=== PATIENT | male | born 1945 | race Caucasian/White ===

== ENCOUNTER → 2016-07-24 | Outpatient (CLI) | payer MEDICARE, BC ==
[2016-07-24 16:32] LABS: ABSOLUTE EOSINOPHILS # (AUTO) 0.1 10^3/uL (0.0-0.6); ABSOLUTE LYMPHOCYTES (AUTO) 1.6 10^3/uL (0.5-4.7); ABSOLUTE MONOCYTES (AUTO) 0.6 10^3/uL (0.1-1.4); ABSOLUTE NEUT (AUTO) 3.5 10^3/uL (1.7-8.2); BASOPHILS % (AUTO) 0.4 % (0-2); EOSINOPHILS % (AUTO) 2.5 % (0-6); HEMATOCRIT 43.2 % (37.9-51.0); HEMOGLOBIN 14.5 g/dL (13.5-17.0); HGB HCT DIFFERENCE 0.3; LYMPHOCYTES % (AUTO) 26.9 % (13-45); MEAN CORPUSCULAR HGB CONC 33.7 g/dL (32.0-36.0); MEAN CORPUSCULAR VOLUME 92 fl (80-97); MONOCYTES % (AUTO) 10.2 % (3-13); RED CELL DISTRIBUTION WIDTH 14.8 % (11.5-14.0); WHITE BLOOD COUNT 5.8 10^3/uL (4.0-10.5)
[2016-07-24 16:39] LABS: ALANINE AMINOTRANSFERASE 33 U/L (21-72); ALBUMIN 4.1 g/dL (3.5-5.0); ALKALINE PHOSPHATASE 62 U/L (38-126); ANION GAP 13 (5-19); ASPARTATE AMINO TRANSFERASE 31 U/L (17-59); BILIRUBIN,TOTAL 0.8 mg/dL (0.2-1.3); BLOOD UREA NITROGEN 25 mg/dL (7-20); CALCIUM 9.4 mg/dL (8.4-10.2); CARBON DIOXIDE 26 mmol/L (22-30); CHLORIDE 103 mmol/L (98-107); CREATININE RESULT 1.36 mg/dL (0.52-1.25); GLUCOSE 87 mg/dL (75-110); POTASSIUM 4.1 mmol/L (3.6-5.0); SODIUM 141.6 mmol/L (137-145); TOTAL PROTEIN 7.4 g/dL (6.3-8.2)
--- NOTE | 2016-07-25 09:22 | EKG REPORT ---
SEVERITY:- ABNORMAL ECG - SINUS RHYTHM ATRIAL PREMATURE COMPLEX FIRST DEGREE AV BLOCK INCOMPLETE RBBB AND LAFB PROBABLE LEFT VENTRICULAR HYPERTROPHY : Confirmed by: Geronimo Jones 25-Jul-2016 09:21:34
== END ==
LOC: OD 15:34
PROVIDERS: ATTEND Physician Assistant
DX: Z01.810 Encounter for preprocedural cardiovascular examination (principal); Z01.811 Encounter for preprocedural respiratory examination; Z01.812 Encounter for preprocedural laboratory examination
CPT/HCPCS: 36415; 80053; 85025; 87070; 93005; 93010

== ENCOUNTER 2016-10-15 07:14 | Emergency (ER) | payer MEDICARE, BC ==
[2016-10-15] MEDS ORDERED: ASPIRIN 81 MG TABLET, CHEWABLE PO ONE (07:43)
[2016-10-15 07:56] LABS: ABSOLUTE EOSINOPHILS # (AUTO) 0.1 10^3/uL (0.0-0.6); ABSOLUTE LYMPHOCYTES (AUTO) 1.3 10^3/uL (0.5-4.7); ABSOLUTE MONOCYTES (AUTO) 0.5 10^3/uL (0.1-1.4); ABSOLUTE NEUT (AUTO) 5.7 10^3/uL (1.7-8.2); BASOPHILS % (AUTO) 0.6 % (0-2); EOSINOPHILS % (AUTO) 1.3 % (0-6); HEMATOCRIT 42.5 % (37.9-51.0); HEMOGLOBIN 14.6 g/dL (13.5-17.0); HGB HCT DIFFERENCE 1.3; MEAN CORPUSCULAR HEMOGLOBIN 31.4 pg (27.0-33.4); MEAN CORPUSCULAR HGB CONC 34.5 g/dL (32.0-36.0); MEAN CORPUSCULAR VOLUME 91 fl (80-97); MONOCYTES % (AUTO) 5.9 % (3-13); RED BLOOD COUNT 4.67 10^6/uL (4.35-5.55); RED CELL DISTRIBUTION WIDTH 14.4 % (11.5-14.0); SEGMENTED NEUTROPHILS % (AUTO) 75.2 % (42-78); WHITE BLOOD COUNT 7.6 10^3/uL (4.0-10.5)
--- NOTE | 2016-10-15 07:56 | ER Document Report ---
ED General - General Chief Complaint: Chest Pain Stated Complaint: CHEST PAIN Mode of Arrival: Medic Information source: Patient Notes: Patient presents to the emergency department via EMS for complaints of left- sided chest pain that radiates down his left arm. Patient reports the pain woke him up. Patient reports he's felt nauseated and little bit clammy. Patient was given aspirin by EMS. Patient also received sublingual nitroglycerin twice and it did help relieve the chest pain but the pain came back. Patient reports the chest pain is 3/5 and the left arm pain is 4/5. Patient denies vomiting diarrhea fever. Patient reports he was doing a colonoscopy prep yesterday. Reports he has a history of CA. Reports history of bypass surgery done in 2011 at [facility]. Patient reports he is only taking baby aspirin daily. He reports SOB but also reports he has a history of feeling short of breath but they cannot find anything wrong. 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 He reports he was told everything was fine. TRAVEL OUTSIDE OF THE [place] IN LAST 30 DAYS: No - HPI Onset: This morning Onset/Duration: Sudden Quality of pain: Achy, Throbbing Severity: Severe Pain Level: 4 Associated symptoms: Chest pain, Nausea, Shortness of breath Exacerbated by: Denies Relieved by: Denies Similar symptoms previously: No Recently seen / treated by doctor: Yes - recent stress and echo - Related Data Allergies/Adverse Reactions: No Known Allergies Allergy (Verified 10/26/11 20:11) Past Medical History - General Information source: Patient - Social History Smoking Status: Former Smoker - quit 23 yo Cigarette use (# per day): No Frequency of alcohol use: None Drug Abuse: None 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 Lives with: Alone Family History: Reviewed & Not Pertinent - Past Medical History Cardiac Medical History: Reports: Hx Heart Attack GI Medical History: Reports: Hx Gastroesophageal Reflux Disease Past Surgical History: Reports: Hx Cardiac Surgery - quadruple, Hx Orthopedic Surgery - back - Immunizations Hx Diphtheria, Pertussis, Tetanus Vaccination: Yes Review of Systems - Review of Systems Notes: Review HPI for review of systems., All other systems negative Physical Exam - Vital signs Vitals: Resp Pulse Ox 14 98 10/15/16 07:24 10/15/16 07:24 - Notes Notes: PHYSICAL EXAMINATION: GENERAL: Well-appearing and in no acute distress, nontoxic looking HEAD: Atraumatic, normocephalic. EYES: Pupils equal round extraocular movements intact, sclera anicteric, conjunctiva are normal. ENT: nares patent, oropharynx clear Moist mucous membranes. NECK: Normal range of motion, supple without lymphadenopathy LUNGS: CTAB and equal. No wheezes rales or rhonchi. HEART: Regular rate and rhythm without murmurs ABDOMEN: Soft, no tenderness. No guarding, no rebound BACK: Denies pain EXTREMITIES: Normal range of motion, no pitting edema. No cyanosis. NEUROLOGICAL: Cranial nerves grossly intact. Normal sensory/motor exams. PSYCH: Normal mood, normal affect. SKIN: Warm, Dry, normal turgor, no rashes or lesions noted Course - Re-evaluation Re-evalutation: 10/15/16 07:45 I have consulted the attending provider Dr Saini per [facility] guidelines, EKG pt hx reviewed. he advised plavix, heparin Nitroglycerin paste patient on patient. Patient updated on plan of care 10/15/16 08:45 Patient reports chest pain decreased to 1/ 5 [facility] transfer line initiated. 10/15/16 09:[address] Licona from [facility] returned call, patient accepted for admission to admissions unit, awaiting call from transfer line 10/15/16 12:00 Transport here pt denies pain, NAD, calm, family in the ED, aware of transfer [facility] contacted with second troponin of 2.220 - Vital Signs Vital signs: Temp Pulse Resp BP Pulse Ox 23 H 110/63 97 10/15/16 11:50 10/15/16 11:50 10/15/16 11:50 - Laboratory Result Diagrams: 10/15/16 07:40 10/15/16 07:40 Laboratory results interpreted by me: 10/15/16 10/15/16 07:40 07:40 RDW 14.4 H Glucose 130 H - Diagnostic Test Radiology reviewed: Image reviewed, Reports reviewed - Diagnostic report text EXAM DESCRIPTION: CHEST SINGLE VIEW/ portable COMPLETED DATE/TIME: 2016 8:21 am REASON FOR STUDY: cp COMPARISON: 10/27/2011 NUMBER OF VIEWS: One view. TECHNIQUE: Single frontal radiographic view of the chest acquired. LIMITATIONS: None. FINDINGS: LUNGS AND PLEURA: No opacities, masses or pneumothorax. No pleural effusion. MEDIASTINUM AND HILAR STRUCTURES: Postoperative changes. HEART AND VASCULAR STRUCTURES: Cardiomegaly stable. No overt CHF. BONES: No acute findings. HARDWARE: Wire sutures mediastinum. OTHER: No other significant finding. TECHNICAL DOCUMENTATION: JOB ID: [id number] [employer]- All Rights Reserved [id number] RAD/CHEST SINGLE VIEW IMPRESSION: Cardiomegaly. Nothing acute - EKG Interpretation by Id EKG shows normal: Sinus rhythm When compared to previous EKG there are: Changes noted - t wave inversion I, AVL , V2, V3 Discharge - Discharge Clinical Impression: Cardiomegaly Chest pain Qualifiers: Chest pain type: unspecified Qualified Code(s): R07.9 - Chest pain, unspecified Condition: Stable Disposition: [facility] Referrals: MARIA ELENA ARCHER MD [Primary Care Provider] - Follow up as needed
[2016-10-15 08:09] LABS: PROTHROMBIN TIME 12.7 SEC (11.4-15.4)
[2016-10-15 08:13] LABS: ALANINE AMINOTRANSFERASE 39 U/L (21-72); ALBUMIN 4.3 g/dL (3.5-5.0); ALKALINE PHOSPHATASE 68 U/L (38-126); ANION GAP 15 (5-19); ASPARTATE AMINO TRANSFERASE 35 U/L (17-59); BILIRUBIN,DIRECT 0.3 mg/dL (0.0-0.4); BILIRUBIN,TOTAL 1.2 mg/dL (0.2-1.3); BLOOD UREA NITROGEN 15 mg/dL (7-20); CALCIUM 9.4 mg/dL (8.4-10.2); CARBON DIOXIDE 23 mmol/L (22-30); CHLORIDE 103 mmol/L (98-107); CREATINE KINASE 109 U/L (55-170); CREATININE RESULT 1.05 mg/dL (0.52-1.25); GLUCOSE 130 mg/dL (75-110); POTASSIUM 4.1 mmol/L (3.6-5.0); SODIUM 140.5 mmol/L (137-145); TOTAL PROTEIN 7.1 g/dL (6.3-8.2)
[2016-10-15] MEDS ORDERED: NORMAL SALINE 1000 ML 1,000 ML IV ONE (08:14)
[2016-10-15] MEDS ORDERED: NITROGLYCERIN 2% OINTMENT 1 GM PACKET TP ONE (08:14)
[2016-10-15] MEDS ORDERED: CLOPIDOGREL BISULFATE 300 MG TABLET PO ONE (08:17)
[2016-10-15] MEDS ORDERED: HEPARIN SOD (PORCINE) 1,000 UNIT/ML 10 ML VIAL IV ONE (08:22)
[2016-10-15] MEDS ORDERED: HEPARIN SOD (PORCINE) 1,000 UNIT/ML 10 ML VIAL IV PRN (08:22)
[2016-10-15] MEDS ORDERED: HEPARIN SODIUM,PORCINE/D5W 250 ML IV PRN (08:22)
[2016-10-15 08:24] LABS: CREATINE KINASE MB 1.31 ng/mL (<4.55)
[2016-10-15 08:27] LABS: TROPONIN I < 0.012 ng/mL
[2016-10-15] MEDS ORDERED: NORMAL SALINE 1000 ML 1,000 ML IV SCH (10:00)
--- NOTE | 2016-10-15 10:39 | EKG REPORT ---
SEVERITY:- ABNORMAL ECG - SINUS RHYTHM INCOMPLETE RBBB AND LAFB BORDERLINE R WAVE PROGRESSION, ANTERIOR LEADS : Confirmed by: Geronimo Jones 15-Oct-2016 10:39:15
--- NOTE | 2016-10-15 10:39 | EKG REPORT ---
SEVERITY:- ABNORMAL ECG - SINUS RHYTHM FIRST DEGREE AV BLOCK INCOMPLETE RBBB AND LAFB BORDERLINE R WAVE PROGRESSION, ANTERIOR LEADS : Confirmed by: Geronimo Jones 15-Oct-2016 10:38:59
[2016-10-15 12:01] VITALS: BP 110/63
== END 2016-10-15 12:10 | disposition short-term general hospital (02) ==
LOC: ER 07:14
DX: I51.7 Cardiomegaly (principal); R07.9 Chest pain, unspecified; R11.0 Nausea; R06.02 Shortness of breath; K21.9 Gastro-esophageal reflux disease without esophagitis; Z87.891 Personal history of nicotine dependence; Z95.1 Presence of aortocoronary bypass graft; I25.2 Old myocardial infarction
CPT/HCPCS: 93005; 96376; 99285; 96361; 96365; 36415; 82553; 82550; 83735; 85025; 85610; 85730; 80053; 84484; 71010; 93010; A9270 ×2; J1644 ×2; J7030; J3490